=== PATIENT | female | born 1975 | race African-American/Black ===

== ENCOUNTER 2019-09-03 10:14 | Outpatient (CLI) | payer MEDICARE, MEDICAID, SELFPAY ==
--- NOTE | 2019-09-03 11:11 | NEURO_ITS ---
TEST: Electroencephalogram DIAGNOSIS: Seizure PATIENT NUMBER: [id number] EEG NUMBER: CLINICAL HISTORY: Patient states that she has been having several ticks on the left side of her face. She states that a month ago, the whole left side of her body went numb. Patient reports that she has also been having multiple seizure like episodes. Last known seizure was August. Patient states that she has an aura that consists of seeing floaters. Inter-ictally, the patient experiences loss of consciousness and incontinence. Post-ictally, the patient is confused and tired.She states that she has been having seizures since she was [age] years old. Past medical history includes hypertension, anxiety, depression, PTSD, back injury, and migraines. CONDITION OF RECORDING: AWAKE, DROWSY, AND SLEEP EEG DESCRIPTION: Whole record consists of drowsiness and sleep. During drowsiness, she has [id number] 11-13hz alpha waxing and waning and mixed with low-voltage 15-21hz beta. Bilateral symmetrical sleep activity with symmetrical sleep spindles. Hyperventilation not completed. Photic stimulation produced poor drive. Non-paroxysmal, non-focal, and non-localizing. IMPRESSION: No abnormalities noted during drowsiness and sleep. MTDD
== END 2019-09-03 10:15 | disposition home or self-care (01) ==
PROVIDERS: Visit Provider Psychiatry & Neurology Neurology
DX: R56.9 Unspecified convulsions (principal)
CPT/HCPCS: 95816